=== PATIENT | male | born 1975 | race African-American/Black ===

== ENCOUNTER 2018-11-09 17:59 | Emergency (ER) | payer MEDICAID ==
[~2018-11-09] VITALS: Ht 177.8 cm; Wt 63.5 kg
[~2018-11-09 17:59] MED LIST: ALBUTEROL SULF8.5 GM INH; AZITHROMYCIN250 MG ORAL; IBUPROFEN600 MG ORAL
[2018-11-09 18:16] VITALS: BP 110/69
--- NOTE | 2018-11-09 18:17 | NUR ---
ED Nurse Note: Patient walked in to ER c/o boil which is painful 10/ x5 days. pt aao x4 and steady gait. calm and cooperative.
[2018-11-09] MEDS ORDERED: Lidocaine 2% 20mg/ml/Epi 0.005mg/ml 20ml vial INJ ONE (18:45)
--- NOTE | 2018-11-09 19:10 | NUR ---
ED Nurse Note: RECEIVED PT FROM MARTÍN ZAVALA RN. PATIENT RESTING COMFORTABLY WITH NAD. I&D SET UP AT BEDSIDE AWAITING ERMD.
--- NOTE | 2018-11-09 19:13 | NUR ---
HAND-OFF: Report given to Sanju Grijalva RN. I&D has been set up.
--- NOTE | 2018-11-09 19:21 | NUR ---
ED Nurse Note: ERMD AT BEDSIDE FOR I&D
--- NOTE | 2018-11-09 19:23 | Emergency Room Report ---
History of Present Illness General Chief Complaint: Skin Rash/Abscess Source: Patient Present Illness HPI 43-year-old male presents to the emergency department complaining of localized 10 out of 10 in severity pain, tenderness, swelling and redness to an area of the left buttock progressive over one week. She reports initially he felt a hardened lump in the area and now he feels a central area that has softened. He denies fevers or chills he denies previous episodes of similar symptoms. Denies lesions/rashes elsewhere on the body. sitting and palpation aggravates his pain. Lying on his stomach helps to minimally alleviate symptoms. Denies trauma or fall. Allergies: Coded Allergies: No Known Allergies (Unverified , 08/15/14) Patient History Past Medical History: see triage record Past Surgical History: none Pertinent Family History: none Immunizations: UTD Reviewed Nursing Documentation: PMH: Agreed; PSxH: Agreed Nursing Documentation-PM Past Medical History: No Stated History Review of Systems All Other Systems: negative except mentioned in HPI Physical Exam Vital Signs Date Time Temp Pulse Resp B/P (MAP) Pulse Ox O2 Delivery O2 Flow Rate FiO2 11/09/18 18:05 98.8 77 20 95 Room Air 11/09/18 18:16 110/69 Sp02 EP Interpretation: reviewed, normal General Appearance: alert, GCS 15, non-toxic, moderate distress Head: normocephalic, atraumatic Eyes: bilateral eye normal inspection, bilateral eye PERRL ENT: hearing grossly normal, normal voice Neck: full range of motion Respiratory: lungs clear, normal breath sounds, speaking full sentences Cardiovascular #1: regular rate, rhythm Musculoskeletal: back normal, gait/station normal, normal range of motion, non- tender Neurologic: alert, oriented x3, responsive, motor strength/tone normal, sensory intact, speech normal, grossly normal Psychiatric: judgement/insight normal Skin: warm/dry, well hydrated, other - 2cm abscess of the left buttock, with palpable fluctuance Lymphatic: no adenopathy Procedures Incision and Drainage Incision and Drainage : Consent: Verbal Site: Left buttock Blade Size: 11 I & D Procedure: betadine prep, sterile drapes applied, sterile dressing applied Wound Location: other - left inner buttock Wound's Depth, Shape: superficial, linear Wound Length (cm): 1 Wound Explored: contaminated - purulent drainage was expressed Anesthesia: Lidocaine w/ Epi Volume Anesthetic (ccs): 3 Splint Applied?: No Sling Applied?: No Patient Tolerated: Well Complications: None Medical Decision Making PA Attestation Dr. Stewart is my supervising Physician whom patient management has been discussed with. Diagnostic Impression: Primary Impression: Left buttock abscess ER Course 43-year-old male presents to the emergency department complaining of localized 10 out of 10 in severity pain, tenderness, swelling and redness to an area of the left buttock progressive over one week. She reports initially he felt a hardened lump in the area and now he feels a central area that has softened. He denies fevers or chills he denies previous episodes of similar symptoms. Denies lesions/rashes elsewhere on the body. sitting and palpation aggravates his pain. Lying on his stomach helps to minimally alleviate symptoms. Denies trauma or fall. Ddx considered but are not limited to cellulitis, abscess, cystic acne, necrotizing fasciitis, insect bite. Vital signs: are WNL, pt. is afebrile H&PE are most consistent with 2cm abscess of the left buttock, with palpable fluctuance. ORDERS: none required at this time, the diagnosis is clinical ED INTERVENTIONS: -I & D. DISCHARGE: At this time pt. is stable for d/c to home. Will provide printed patient care instructions, and any necessary prescriptions. Care plan and follow up instructions have been discussed with the patient prior to discharge. Last Vital Signs Date Time Temp Pulse Resp B/P (MAP) Pulse Ox O2 Delivery O2 Flow Rate FiO2 11/09/18 18:16 98.8 91 20 110/69 95 Room Air Status: improved Disposition: HOME, SELF-CARE Condition: Stable Scripts Mupirocin* (MUPIROCIN*) 22 Gm Oint...g. 1 APPLIC TOPIC THREE TIMES A DAY, #22 GM Prov: Inna Villafuerte 11/09/18 Ibuprofen* (MOTRIN*) 600 Mg Tablet 600 MG ORAL THREE TIMES A DAY, #30 TAB 0 Refills Prov: Inna Villafuerte 11/09/18 Clindamycin Hcl (CLINDAMYCIN HCL) 300 Mg Capsule 300 MG ORAL FOUR TIMES A DAY for 7 Days, #28 CAP Prov: Inna Villafuerte 11/09/18 Referrals: [facility],REFERRING (PCP) Patient Instructions: Abscess Additional Instructions: Take medications as directed. Follow up with a Primary Care Provider in 3-5 days, even if your symptoms have resolved. --Please review list of primary care clinics, if you do not already have a primary care provider Return sooner to ED if new symptoms occur, or current symptoms become worse. - Please note that this Emergency Department Report was dictated using [employer] field technician technology software, occasionally this can lead to erroneous entry secondary to interpretation by the dictation equipment. Inna Villafuerte November 09, 2018 19:23
[2018-11-09] MEDS ORDERED: CLINDAMYCIN HC300 MG ORAL (19:34)
[2018-11-09] MEDS ORDERED: MUPIROCIN22 GM TOPIC (19:34)
[2018-11-09] MEDS ORDERED: IBUPROFEN600 MG ORAL (19:34)
[2018-11-09 19:40] VITALS: BP 110/69
--- NOTE | 2018-11-09 19:40 | NUR ---
ER DISCHARGE NOTE: Patient is cleared to be discharged per ERMD, pt is aox4, on room air, with stable vital signs. pt was given dc and prescription instructions, pt was able to verbalize understanding, pt id band REMOVED. pt is able to ambulate with steady gait. pt took all belongings.
== END 2018-11-09 19:40 | disposition home or self-care (01) ==
LOC: EMR 18:45
DX: L02.31 Cutaneous abscess of buttock (principal)
CPT/HCPCS: 10060; 99283; Z7502